=== PATIENT | male | born 1980 | race Caucasian/White ===

== ENCOUNTER 2017-02-01 22:22 | Emergency (ER) | payer BC ==
[~2017-02-01] VITALS: Ht 177.8 cm; Wt 112.5 kg
[2017-02-01] MEDS ORDERED: AMOXICILLIN 500 MG CAPSULE PO ONE (23:00)
[2017-02-01 23:07] VITALS: BP 167/88
== END 2017-02-01 23:42 | disposition home or self-care (01) ==
LOC: ED 23:36
DX: H65.02 Acute serous otitis media, left ear (principal); H60.12 Cellulitis of left external ear
CPT/HCPCS: 99283